=== PATIENT | male | born 1995 | race Caucasian/White ===

== ENCOUNTER 2016-02-11 08:12 | Emergency (ER) | payer BC, MEDICAID ==
[~2016-02-11] VITALS: Ht 175.3 cm; Wt 70.8 kg
[2016-02-11 08:20] VITALS: BP 129/75
== END 2016-02-11 09:47 | disposition left against medical advice (07) ==
LOC: ER 08:17
DX: M79.604 Pain in right leg (principal); M79.605 Pain in left leg; Z53.21 Procedure and treatment not carried out due to patient leaving prior to being seen by health care provider